=== PATIENT | male | born 1970 | race Two or more races ===

== ENCOUNTER 2022-11-06 11:43 | Outpatient (REF) | payer SELFPAY ==
[2022-11-06 13:15] LABS: Estimated Average Glucose 192 mg/dL; Hemoglobin A1c % 8.3 %
[2022-11-06 13:43] LABS: Anion Gap 13 (12-20); Blood Urea Nitrogen 19 mg/dL (9-16); Calcium 9.5 mg/dL (8.4-10.2); Carbon Dioxide 32 mmol/L (22-29); Chloride 101 mmol/L (96-108); Estimated Glomerular Filt Rate > 60; Glucose Random 163 mg/dL (60-115); Potassium 4.6 mmol/L (3.3-5.1); Sodium 141 mmol/L (135-145)
[2022-11-06 13:47] LABS: Erythrocyte Sedimentation Rate 7 MM/HR (0-15)
[2022-11-06 14:01] LABS: T4 Thyroxine 7.3 ug/dL (4.5-12.0); Thyroid Stimulating Hormone 3.35 uIU/mL (0.32-4.0)
== END 2022-11-06 11:44 | disposition home or self-care (01) ==
LOC: HO.LAB 11:43
PROVIDERS: Visit Provider Psychiatry & Neurology Neurology
DX: M54.16 Radiculopathy, lumbar region (principal); E11.9 Type 2 diabetes mellitus without complications; E03.9 Hypothyroidism, unspecified
CPT/HCPCS: 36415; 80048; 83036; 84436; 84443; 85652

== ENCOUNTER 2023-07-31 08:56 | Outpatient (REF) | payer OTHER, SELFPAY | END 2023-07-31 08:57 | disposition home or self-care (01) | LOC: HO.MRI 08:56 | PROVIDERS: Visit Provider Psychiatry & Neurology Neurology | DX: M54.16 Radiculopathy, lumbar region (principal) | CPT/HCPCS: 72148 ==

== ENCOUNTER 2024-08-02 18:36 | Inpatient (IN) | payer OTHER, SELFPAY ==
--- NOTE | ~2024-08-02 | US_ITS ---
CLINICAL HISTORY: RLE swelling Venous duplex ultrasound right lower extremity Comparison: None Findings: The visualized deep veins are fully compressible with normal Doppler color flow and spectral tracings. No popliteal cyst. There is a prominent 2.3 cm lymph node in the right inguinal region, with a normal fatty hilum. IMPRESSION: 1. Negative for right lower extremity deep vein thrombosis. 2. Prominent right inguinal lymph node. This document has been electronically signed by: Luis Alfredo Higgins MD on 08/02/2024 20:32:26
--- NOTE | ~2024-08-02 | XR_ITS ---
CLINICAL HISTORY: r o osteo 3 view right foot Comparison: None Findings: No lytic or blastic bone lesions. No destructive bone lesions. No significant loss of joint space, osteophytes, or erosions. No ankle effusion. No radiopaque foreign body. Diffuse soft tissue swelling around the forefoot. IMPRESSION: 1. No acute findings. 2. Diffuse forefoot soft tissue swelling. This document has been electronically signed by: Luis Alfredo Higgins MD on 08/02/2024 19:15:12
--- NOTE | ~2024-08-02 | CT_ITS ---
CLINICAL HISTORY: pain, infection, ? abscess, ? osteomyelitis CT right foot with contrast Comparison: CR - XR FOOT RT MIN 3V - 08/02/24 19:09 EST Findings: There is no evidence of osteomyelitis. There is subcutaneous edema greatest dorsally and laterally. There is a superficial focus of gas and minimal subdermal fluid between the 4th and 5th toes. There is otherwise no evidence of an abscess. There is no fracture or dislocation. Joint spaces appear normal. IMPRESSION: 1. Subcutaneous edema compatible with cellulitis. 2. No evidence of osteomyelitis. 3. Superficial focus of gas and minimal subdermal fluid between the 4th and 5th toes suggestive of blister or tiny superficial abscess. This document has been electronically signed by: López Williamson MD on 08/02/2024 23:19:33
--- NOTE | 2024-08-02 18:51 | ED_ITS ---
HPI - Extremity Injury (Lower) General Chief Complaint: Extremity Injury, Lower Stated Complaint: right foot swollen Time Seen by Provider: 08/02/24 21:26 Related Data Allergies Allergy/AdvReac Type Severity Reaction Status Date / Time No Known Allergies Allergy Verified 08/02/24 18:54 [facility] Past Medical History Medical History Peripheral neuropathy Non-insulin dependent type 2 diabetes mellitus Mixed hyperlipidemia Social History Social History Smoked in Last 30 Days: No Advance Directives: No Advance Directives Information Provided: No Do you have a plan to hurt others: No Plan Physical Exam 2 Vital Signs: Vital Signs: Last Vital Signs Temp 98.5 F 08/02/24 20:47 Pulse 74 08/02/24 20:47 Resp 16 08/02/24 20:47 BP 131/64 08/02/24 20:47 Pulse Ox 97 08/02/24 20:47 O2 Del Method Room Air 08/02/24 20:47 BMI result Body Mass Index 36.6 Course Course Course Narrative: This is a Rapid Medical Exam performed in triage by Erna Blanchard PA-C. Full HPI, ROS and PE to be performed by primary ED provider. 53-year-old male with a past medical history diabetes, HLD presenting to the ED sent from urgent care for worsening right foot infection s/p failed outpatient antibiotics. Reports right foot pain, swelling, erythema, and drainage x 3 days. Was initially evaluated 3 days ago at urgent Care prescribed nystatin cream and Bactrim without relief, was re-evaluate due today and sent to the ED. PE: + right foot with appreciable swelling, erythema, open wound between 4th and 5th toes. Blister. Drainage. Tender to palpation neurovascularly intact Plan: Labs, blood Cx, lactic, XR, US Medical Decision Making Lab Data 08/02/24 19:36 08/02/24 19:36 Labs: Lab Results 08/02/24 Range/Units 19:36 WBC 8.6 (4.8-10.8) X10*3/uL RBC 5.72 (4.60-5.80) X10*6/uL Hgb 16.4 (14.0-18.0) g/dl Hct 46.5 (42.0-52.0) % MCV 81.3 (80.0-98.0) fL MCH 28.7 (27.0-33.0) pg MCHC 35.3 (31.0-36.0) g/dl RDW 12.4 (11.0-16.0) % Plt Count 241 (160-400) X10*3/uL MPV 9.6 (9.4-12.4) fL Immature Gran % (Auto) 0.2 (0.0-0.4) % Neut % (Auto) 62.8 (45-73) % Lymph % (Auto) 25.4 (20-40) % [place] % (Auto) 7.1 (2-11) % Eos % (Auto) 3.6 (0-4) % Baso % (Auto) 0.9 (0-2) % Lymph # (Auto) 2.2 (1.2-4.9) X10*3/uL [place] # (Auto) 0.6 (0.1-1.2) X10*3/uL Eos # (Auto) 0.3 (0.0-0.4) X10*3/uL Baso # (Auto) 0.1 (0.0-0.2) X10*3/uL Abs Immat Gran (auto) 0.02 (0.00-0.03) X10*3/uL Absolute Neuts (auto) 5.4 (2.0-8.3) x10*3/uL Absolute Nucleated RBC 0.000 (0.0-0.012) X10*3/uL Nucleated RBC % (auto) 0.0 (0.0-0.2) /100WBC PT 11.9 (10.9-12.4) SEC INR 1.0 (0.9-1.1) Sodium 137 (135-145) mmol/L Potassium 4.1 (3.3-5.1) mmol/L Chloride 104 (96-108) mmol/L Carbon Dioxide 22 (22-29) mmol/L Anion Gap 15 (12-20) BUN 14 (9-16) mg/dL Creatinine 0.85 (0.5-1.4) mg/dL Estim Creat Clear Calc 106.6 Estimated GFR > 60 Random Glucose 163 H (60-115) mg/dL Lactic Acid 1.1 (0.5-2.0) mmol/L Calcium 9.5 (8.4-10.2) mg/dL Magnesium 2.2 (1.6-2.6) mg/dL Total Bilirubin 0.3 (0.0-1.0) mg/dL Direct Bilirubin 0.1 (0.0-0.5) mg/dL AST 19 (5-37) U/L ALT 27 (0-40) U/L Alkaline Phosphatase 69 (39-117) U/L B-Natriuretic Peptide < 10 (<100) pg/mL Total Protein 7.9 (6.5-8.0) g/dL Albumin 4.2 (3.5-5.0) g/dL Discharge Plan Discharge Clinical Impression: Cellulitis of right foot Patient Disposition: Admitted As Inpatient Print Language: Kiswahili
[2024-08-02 18:52] VITALS: BP 129/63; PULSE 79; RESP 16; TEMP 36.1; O2SAT 100; BMI 36.6
[2024-08-02 19:43] LABS: MANUAL DIFF FLAG NO
[2024-08-02 19:44] LABS: Basophils Absolute Auto 0.1 X10*3/uL (0.0-0.2); Basophils Percent Auto 0.9 % (0-2); Eosinophils Absolute Auto 0.3 X10*3/uL (0.0-0.4); Eosinophils Percent Auto 3.6 % (0-4); Hematocrit 46.5 % (42.0-52.0); Hemoglobin 16.4 g/dl (14.0-18.0); Imm Gran Abs Auto 0.02 X10*3/uL (0.00-0.03); Imm Gran Pct Auto 0.2 % (0.0-0.4); Lymphocytes Absolute Auto 2.2 X10*3/uL (1.2-4.9); Lymphocytes Percent Auto 25.4 % (20-40); Mean Corpuscular HGB Conc 35.3 g/dl (31.0-36.0); Mean Corpuscular Hemoglobin 28.7 pg (27.0-33.0); Mean Corpuscular Volume 81.3 fL (80.0-98.0); Mean Platelet Volume 9.6 fL (9.4-12.4); Monocytes Absolute Auto 0.6 X10*3/uL (0.1-1.2); Monocytes Percent Auto 7.1 % (2-11); Neutrophils Absolute Auto 5.4 x10*3/uL (2.0-8.3); Neutrophils Percent Auto 62.8 % (45-73); Platelet Count 241 X10*3/uL (160-400); Red Blood Count 5.72 X10*6/uL (4.60-5.80); Red Cell Distribution Width 12.4 % (11.0-16.0); White Blood Count 8.6 X10*3/uL (4.8-10.8)
[2024-08-02 19:51] LABS: Prothrombin Time 11.9 SEC (10.9-12.4)
[2024-08-02 20:09] LABS: Alanine Aminotransferase 27 U/L (0-40); Albumin Level 4.2 g/dL (3.5-5.0); Alkaline Phosphatase 69 U/L (39-117); Anion Gap 15 (12-20); Aspartate Amino Transferase 19 U/L (5-37); Bilirubin Direct 0.1 mg/dL (0.0-0.5); Bilirubin Total 0.3 mg/dL (0.0-1.0); Blood Urea Nitrogen 14 mg/dL (9-16); Calcium 9.5 mg/dL (8.4-10.2); Carbon Dioxide 22 mmol/L (22-29); Chloride 104 mmol/L (96-108); Creatinine Clr Calc Pharmacy 106.6; Estimated Glomerular Filt Rate > 60; Glucose Random 163 mg/dL (60-115); Magnesium 2.2 mg/dL (1.6-2.6); Potassium 4.1 mmol/L (3.3-5.1); Sodium 137 mmol/L (135-145); Total Protein 7.9 g/dL (6.5-8.0)
[2024-08-02 20:11] LABS: Lactic Acid 1.1 mmol/L (0.5-2.0)
[2024-08-02 20:15] LABS: B Type Natriuretic Peptide < 10 pg/mL (<100)
[2024-08-02 20:47] VITALS: BP 131/64; PULSE 74; RESP 16; TEMP 36.9; O2SAT 97
--- NOTE | 2024-08-02 21:31 | PC.NURSE ---
pt has a wound on rt foot, states the has been taking some antibiotics for two days now, last took tylenol and motrin in the morning. redness area on rt foot, marked and dated. iv inserted to left ac with a 22 gauge.
--- NOTE | 2024-08-02 21:44 | P.HPHOSP_ITS ---
History of Present Illness Date of Service: 08/02/24 Chief Complaint: Foot infection This is a 53-year-old male with pertinent history of non insulin diabetes mellitus, mixed hyperlipidemia, peripheral neuropathy who presents to the emergency department for concerns of foot infection. Patient states his symptoms began 4 days prior to presentation. Patient was prescribed antibiotics for right foot infection 4 days ago. He took 3 days of Bactrim but did not notice any improvement. He has been having purulent foul-smelling drainage between his 4th and 5th digit of his right foot and his right foot is swollen, red and warm. This has never happened before. Unknown precipitating event. Does not take insulin but is on metformin for diabetes mellitus. No fever, chills, chest pain, palpitations, shortness of breath, abdominal pain, changes in urinary or bowel habits. In the emergency department, x-ray with diffuse soft tissue swelling. Review of Systems 2 Constitutional: Constitutional: Reports no additional constitutional complaints Cardiovascular: Cardiovascular: Reports no additional cardiovascular complaints Respiratory: Respiratory: Reports no additional respiratory complaints Genitourinary: Genitourinary: Reports no additional male genitourinary complaints Musculoskeletal: Musculoskeletal: Reports no additional musculoskeletal complaints [facility] Medical History Peripheral neuropathy Non-insulin dependent type 2 diabetes mellitus Mixed hyperlipidemia Pertinent family history: No family history of early CAD Social History Smoked in Last 30 Days: No Advance Directives: No Advance Directives Information Provided: No Do you have a plan to hurt others: No Plan Meds Allergies Allergy/AdvReac Type Severity Reaction Status Date / Time No Known Allergies Allergy Verified 08/02/24 18:54 Physical Exam 2 Vital Signs and Narrative: Vital Signs: Last Vital Signs Temp 98.5 F 08/02/24 20:47 Pulse 74 08/02/24 20:47 Resp 16 08/02/24 20:47 BP 131/64 08/02/24 20:47 Pulse Ox 97 08/02/24 20:47 O2 Del Method Room Air 08/02/24 20:47 BMI result Body Mass Index 36.6 Middle-aged male lying in bed in no distress Neck supple, no JVD Regular rate and rhythm, S1-S2 heard Regular breath sounds bilaterally, no wheezing or crackles appreciated Abdomen soft nontender, no guarding, no rigidity Patient is awake, alert and oriented to self, place, time and person ; no focal motor deficit Psych: Normal mood Right foot with swelling, erythema, warmth, purulent drainage between digits, tenderness present Results Labs 08/02/24 19:36 08/02/24 19:36 Labs: Laboratory Results - last 24 hr 08/02/24 19:36 MCV 81.3 MCH 28.7 MCHC 35.3 RDW 12.4 Plt Count 241 MPV 9.6 Immature Gran % (Auto) 0.2 Neut % (Auto) 62.8 Lymph % (Auto) 25.4 [place] % (Auto) 7.1 Eos % (Auto) 3.6 Baso % (Auto) 0.9 Lymph # (Auto) 2.2 [place] # (Auto) 0.6 Eos # (Auto) 0.3 Baso # (Auto) 0.1 Abs Immat Gran (auto) 0.02 Absolute Neuts (auto) 5.4 Absolute Nucleated RBC 0.000 Nucleated RBC % (auto) 0.0 PT 11.9 INR 1.0 Anion Gap 15 Estim Creat Clear Calc 106.6 Estimated GFR > 60 Random Glucose 163 H Lactic Acid 1.1 Calcium 9.5 Magnesium 2.2 Total Bilirubin 0.3 Direct Bilirubin 0.1 AST 19 ALT 27 Alkaline Phosphatase 69 B-Natriuretic Peptide < 10 Total Protein 7.9 Albumin 4.2 Assessment and Plan (1) Cellulitis of right foot: Status: Acute Plan This is a 53-year-old male with pertinent history of non insulin diabetes mellitus, mixed hyperlipidemia, peripheral neuropathy who presents to the emergency department for concerns of foot infection. #. Right foot purulent cellulitis: Will admit patient for IV antibiotics as he failed outpatient p.o. antibiotics. CT pending. No sepsis. Monitor for improvement. Wound care consult #. Elp-wkqopto-bnjudyzhm diabetes mellitus: Initiating Accu-Cheks with sliding scale insulin before meals and at bedtime #. Mixed hyperlipidemia: On statin #. Peripheral neuropathy: On gabapentin Med rec pending DVT prophylaxis: Lovenox Full code Admit as inpatient and will require two night minimum hospital stay for IV antibiotics (as above), which is not possible in a lesser acute setting. Quality Stroke Does the patient have a stroke diagnosis?: No VTE Prior VTE?: No VTE Risk Level:: Medical - moderate - high VTE Device Contraindication: Treatment Not Indicated VTE Drug Contraindication: N/A - Med Ordered
--- NOTE | 2024-08-02 21:46 | ED.LOWEXIN ---
HPI - Extremity Injury (Lower) General Chief Complaint: Extremity Injury, Lower Stated Complaint: right foot swollen Time Seen by Provider: 08/02/24 21:26 History of Present Illness HPI Narrative: Patient is a 53-year-old male sent from the urgent care for increasing redness swelling to the right foot over last 3-4 days. No fever no chills no systemic complaints. Patient has a history of diabetes. His currently on metformin. Has increasing pain on ambulation. Came to the ED. noticed increasing swelling. Related Data Allergies Allergy/AdvReac Type Severity Reaction Status Date / Time No Known Allergies Allergy Verified 08/02/24 18:54 Review of Systems Review of Systems: No fever no chills. Yes all other systems are reviewed and are negative [facility] Past Medical History Attestation statement: The following information was validated with the patient. Medical History Peripheral neuropathy Non-insulin dependent type 2 diabetes mellitus Mixed hyperlipidemia Social History Social History Smoked in Last 30 Days: No Advance Directives: No Advance Directives Information Provided: No Do you have a plan to hurt others: No Plan Physical Exam Vital Signs: Vital Signs: Last Vital Signs Temp 98.5 F 08/02/24 20:47 Pulse 74 08/02/24 20:47 Resp 16 08/02/24 20:47 BP 131/64 08/02/24 20:47 Pulse Ox 97 08/02/24 20:47 O2 Del Method Room Air 08/02/24 20:47 BMI result Body Mass Index 36.6 Appearance: Alert. Oriented X3. No acute distress. Eyes: Pupils equal, round and reactive to light. ENT: Pharynx normal. Neck: Normal inspection. Neck supple. No lymph nodes noted. No crepitus CVS: Normal heart rate and rhythm. Pulses normal. Normal S1 and S2 Respiratory: No respiratory distress. Breath sounds normal. No Wheezing. No rales Abdomen: Soft and nontender. No rigidity. No distention. good BS x4 Skin: Skin warm and dry. Normal skin color. Normal skin turgor. Extremities: No lower extremity edema. Neurovascular intact to all extremities. Examination of the right foot shows area of weeping discharge coming between the 4th and 5th digit. There is surrounding area of tenderness to touch. Surrounded by area of redness. That are blanching. Positive swelling to the dorsum of the foot. Extending all the way up to the ankle. There is good movement of the ankle. Good movement of the knee. Good movement of the hip. Sensation grossly intact. Capillary refill less than 2 seconds. Neuro: Oriented X 3. No motor deficit. No sensory deficit. Moving all extermities. No slurred speech Medical Decision Making Medical Decision Making [facility] Narrative: Patient has significant infection with a history of diabetes. No evidence for sepsis. Patient's white count is normal lactate is normal. BNP is less than 10 there is no evidence for CHF. Patient's foot x-ray showed no acute fracture. No gross signs of osteomyelitis. Doppler of the right lower extremity was done. It showed no evidence for DVT. Patient's case consulted by the hospitalist team. Will start patient on antibiotics and admit given patient's diabetic Differential Diagnosis Differential Diagnoses: The differential diagnosis associated with the presentation includes Cellulitis, osteomyelitis, abscess Admission/Observation Consideration of admission/observation: Escalation of care including admission/observation considered Consult Healthcare Provider Management of the patient was discussed with: Hospitalist Lab Data [facility] Lab Attestation statement: I reviewed the patient's lab results. 08/02/24 19:36 08/02/24 19:36 Labs: Lab Results 08/02/24 Range/Units 19:36 WBC 8.6 (4.8-10.8) X10*3/uL RBC 5.72 (4.60-5.80) X10*6/uL Hgb 16.4 (14.0-18.0) g/dl Hct 46.5 (42.0-52.0) % MCV 81.3 (80.0-98.0) fL MCH 28.7 (27.0-33.0) pg MCHC 35.3 (31.0-36.0) g/dl RDW 12.4 (11.0-16.0) % Plt Count 241 (160-400) X10*3/uL MPV 9.6 (9.4-12.4) fL Immature Gran % (Auto) 0.2 (0.0-0.4) % Neut % (Auto) 62.8 (45-73) % Lymph % (Auto) 25.4 (20-40) % [place] % (Auto) 7.1 (2-11) % Eos % (Auto) 3.6 (0-4) % Baso % (Auto) 0.9 (0-2) % Lymph # (Auto) 2.2 (1.2-4.9) X10*3/uL [place] # (Auto) 0.6 (0.1-1.2) X10*3/uL Eos # (Auto) 0.3 (0.0-0.4) X10*3/uL Baso # (Auto) 0.1 (0.0-0.2) X10*3/uL Abs Immat Gran (auto) 0.02 (0.00-0.03) X10*3/uL Absolute Neuts (auto) 5.4 (2.0-8.3) x10*3/uL Absolute Nucleated RBC 0.000 (0.0-0.012) X10*3/uL Nucleated RBC % (auto) 0.0 (0.0-0.2) /100WBC PT 11.9 (10.9-12.4) SEC INR 1.0 (0.9-1.1) Sodium 137 (135-145) mmol/L Potassium 4.1 (3.3-5.1) mmol/L Chloride 104 (96-108) mmol/L Carbon Dioxide 22 (22-29) mmol/L Anion Gap 15 (12-20) BUN 14 (9-16) mg/dL Creatinine 0.85 (0.5-1.4) mg/dL Estim Creat Clear Calc 106.6 Estimated GFR > 60 Random Glucose 163 H (60-115) mg/dL Lactic Acid 1.1 (0.5-2.0) mmol/L Calcium 9.5 (8.4-10.2) mg/dL Magnesium 2.2 (1.6-2.6) mg/dL Total Bilirubin 0.3 (0.0-1.0) mg/dL Direct Bilirubin 0.1 (0.0-0.5) mg/dL AST 19 (5-37) U/L ALT 27 (0-40) U/L Alkaline Phosphatase 69 (39-117) U/L B-Natriuretic Peptide < 10 (<100) pg/mL Total Protein 7.9 (6.5-8.0) g/dL Albumin 4.2 (3.5-5.0) g/dL Independent Interpretation I performed an independent interpretation of an: Plain X-Ray (X-ray of the foot showed no acute fracture) Radiology Impression Discussion of test interpretation with radiology: I have reviewed the radiologist's reading. External Record Review External record reviewed: Inpatient record Chronic Conditions Patient?s care impacted by: Diabetes Social Determinants Patient?s care significantly limited by Social Determinants of Health including: Problems related to primary support group Discharge Plan Discharge Clinical Impression: Cellulitis of right foot Patient Disposition: Admitted As Inpatient Print Language: Kinyarwanda
[2024-08-02] MEDS: iohexoL 350 MG/ML 100 ML INFUS..BTL 85 ML IV (22:01)
[2024-08-02] MEDS: Enoxaparin Sodium 40 MG/0.4 ML SYRINGE SUBCUT (22:08)
[2024-08-02] MEDS: Lactated Ringers 1,000 ML 999 ML IV (22:14)
[2024-08-02] MEDS: vancomycin/NS 2,000 MG/500 ML PLAST..BAG 250 MG IV (22:15)
--- NOTE | 2024-08-02 22:34 | PHA.PROG ---
Admission Date/Time: August 02, 2024 21:42 Indication:SKIN Weight in k.79 kg Adjusted body weight in Kg: [place] body weight in Kg: Obesity Dosing Indication % IBW: Serum Creatinine - Last 168 Hours 08/02/24 19:36 Creatinine 0.85 Estimated CrCl and GFR - Last 168 Hours 08/02/24 19:36 Estim Creat Clear Calc 106.6 Estimated GFR > 60 Vancomycin Loading Dose: 2000 MG Current Vancomycin Dosing Regimen: 1250 MG Q12H Vancomycin Monitoring using AUC goal of 400 - 600 range with trough as surrogate marker: VYZ=295 TROUGH=15.4 Date and Time for next Vancomycin Level to be drawn: 08/04/24 @0800 Pharmacist Comments on Vancomycin Plan: Vancomycin dosing will take advantage of [employer] as a clinical decision support tool that uses Bayesian modeling to calculate individual patient's pharmacokinetic parameters and forecast the patient's drug concentration time course with the target goal AUC 24 range of 400 - 600 mg/L/hr.
[2024-08-03 02:26] VITALS: BP 113/64; PULSE 75; RESP 12; TEMP 36.6; O2SAT 95
--- NOTE | 2024-08-03 02:38 | PC.NURSE ---
Medication list completed to the best of pt knowledge and medical record.
[2024-08-03 03:47] LABS: MANUAL DIFF FLAG NO
[2024-08-03 03:51] LABS: Basophils Absolute Auto 0.1 X10*3/uL (0.0-0.2); Basophils Percent Auto 0.7 % (0-2); Eosinophils Absolute Auto 0.3 X10*3/uL (0.0-0.4); Eosinophils Percent Auto 4.3 % (0-4); Hematocrit 43.1 % (42.0-52.0); Hemoglobin 14.9 g/dl (14.0-18.0); Imm Gran Abs Auto 0.01 X10*3/uL (0.00-0.03); Imm Gran Pct Auto 0.1 % (0.0-0.4); Lymphocytes Absolute Auto 2.1 X10*3/uL (1.2-4.9); Lymphocytes Percent Auto 30.4 % (20-40); Mean Corpuscular HGB Conc 34.6 g/dl (31.0-36.0); Mean Corpuscular Hemoglobin 28.1 pg (27.0-33.0); Mean Corpuscular Volume 81.3 fL (80.0-98.0); Mean Platelet Volume 9.7 fL (9.4-12.4); Monocytes Absolute Auto 0.6 X10*3/uL (0.1-1.2); Monocytes Percent Auto 8.1 % (2-11); Neutrophils Absolute Auto 3.9 x10*3/uL (2.0-8.3); Neutrophils Percent Auto 56.4 % (45-73); Platelet Count 255 X10*3/uL (160-400); Red Cell Distribution Width 12.3 % (11.0-16.0)
[2024-08-03 04:03] LABS: Anion Gap 9 (12-20); Blood Urea Nitrogen 10 mg/dL (9-16); Calcium 8.8 mg/dL (8.4-10.2); Carbon Dioxide 25 mmol/L (22-29); Chloride 106 mmol/L (96-108); Creatinine Clr Calc Pharmacy 104.2; Estimated Glomerular Filt Rate > 60; Glucose Random 178 mg/dL (60-115); Sodium 136 mmol/L (135-145)
[2024-08-03 06:06] VITALS: BP 115/54; PULSE 64; RESP 16; TEMP 36.8; O2SAT 97
[2024-08-03] MEDS: 0.9 % Sodium Chloride Flush 3 ML SYRINGE IVFLUSH ×3 (06:49→21:07)
--- NOTE | 2024-08-03 07:33 | P.PNIM_ITS ---
Subjective Subjective Date of Service: 08/03/24 Interval History: Being followed for right foot cellulitis failed outpatient antibiotics Complaining of pain right foot, denies fever, no chills, tolerating diet Noncompliant with oral hypoglycemics Review of Systems All other system reviewed and are negative Physical Exam 2 Vital Signs: Vital Signs: Last Vital Signs Temp 98.3 F 08/03/24 06:06 Pulse 64 08/03/24 06:06 Resp 16 08/03/24 06:06 BP 115/54 L 08/03/24 06:06 Pulse Ox 97 08/03/24 06:06 O2 Del Method Room Air 08/03/24 06:06 BMI result Body Mass Index 36.6 Const: Other: General lying in bed in no distress Neck no JVD Regular rate and rhythm, S1-S2 heard Lungs clear to auscultation no respiratory distress. Abdomen soft nontender, no guarding, no rigidity Right foot with swelling, erythema, warmth, purulent drainage between digits, tenderness to palpation. Neuro nonfocal normal sensation dorsum of feet Psych appropriate affect Objective Data Active Medications Acetaminophen (Acetaminophen 325 Mg Tablet) 650 mg PO Q6H PRN PRN Reason: Pain, Mild 1-3,fever,headache Calcium Carbonate (Calcium Carbonate 750 Mg Tab.Chew) 750 mg PO Q4H PRN PRN Reason: Heartburn Enoxaparin Sodium (Enoxaparin Sodium 40 Mg/0.4 Ml Syringe) 40 mg SUBCUT Q24H COUNT INCLUDES THE [facility] Last Admin: 08/02/24 22:08 Dose: 40 mg Documented By: MELANY Glucose (Glucose Gel 15 Gm Gel..Gram.) 15 gm PO Q15M PRN; Protocol PRN Reason: per Hypoglycemia Standing Ord. Dextrose (D10) 250 mls @ 750 mls/hr IV Q15M PRN; Protocol PRN Reason: per Hypoglycemia Standing Ord. Vancomycin HCl 1,250 mg/ (Sodium Chloride) 250 mls @ 166.667 mls/hr IV Q12H COUNT INCLUDES THE [facility] Insulin Human Lispro (Insulin Lispro 100 Unit/Ml 3 Ml Vial) 0 unit SUBCUT QIDACHS COUNT INCLUDES THE [facility]; Protocol Magnesium Hydroxide (Milk Of Magnesia 30 Ml Oral.Susp) 30 ml PO DAILY PRN PRN Reason: Constipation Melatonin (Melatonin 3 Mg Tablet) 6 mg PO BEDTIME PRN PRN Reason: Insomnia Ondansetron HCl (Ondansetron Hcl 4 Mg/2 Ml Vial) 4 mg IVPUSH Q8H PRN PRN Reason: Nausea and Vomiting Pharmacy Consult (Consult Rx Vancomycin Dosing) 1 each MISCELLANE DAILY PRN PRN Reason: Consult order Sodium Chloride (0.9 % Sodium Chloride Flush 3 Ml Syringe) 3 ml IVFLUSH QSHIFT COUNT INCLUDES THE [facility] Last Admin: 08/03/24 06:49 Dose: 3 ml Documented By: TRISHA Labs 08/03/24 03:34 08/03/24 03:34 Labs: Laboratory Results - last 24 hr 08/02/24 08/03/24 19:36 03:34 MCV 81.3 81.3 MCH 28.7 28.1 MCHC 35.3 34.6 RDW 12.4 12.3 Plt Count 241 255 MPV 9.6 9.7 Immature Gran % (Auto) 0.2 0.1 Neut % (Auto) 62.8 56.4 Lymph % (Auto) 25.4 30.4 [place] % (Auto) 7.1 8.1 Eos % (Auto) 3.6 4.3 H Baso % (Auto) 0.9 0.7 Lymph # (Auto) 2.2 2.1 [place] # (Auto) 0.6 0.6 Eos # (Auto) 0.3 0.3 Baso # (Auto) 0.1 0.1 Abs Immat Gran (auto) 0.02 0.01 Absolute Neuts (auto) 5.4 3.9 Absolute Nucleated RBC 0.000 0.000 Nucleated RBC % (auto) 0.0 0.0 PT 11.9 INR 1.0 Anion Gap 15 9 L Estim Creat Clear Calc 106.6 104.2 Estimated GFR > 60 > 60 Random Glucose 163 H 178 H Lactic Acid 1.1 Calcium 9.5 8.8 D Magnesium 2.2 Total Bilirubin 0.3 Direct Bilirubin 0.1 AST 19 ALT 27 Alkaline Phosphatase 69 B-Natriuretic Peptide < 10 Total Protein 7.9 Albumin 4.2 Assessment and Plan (1) Peripheral neuropathy: Status: Acute (2) Mixed hyperlipidemia: Status: Acute (3) Non-insulin dependent type 2 diabetes mellitus: Status: Acute (4) Cellulitis of right foot: Status: Acute Plan 53-year-old male with pertinent history of non insulin diabetes mellitus, mixed hyperlipidemia, peripheral neuropathy who presents to the emergency department for concerns of foot infection. #. Right foot purulent cellulitis: Continue IV vancomycin started on 08/03, failed outpatient p.o. antibiotics. persistent redness, warmth, tenderness to palpation and minimal serosanguineous discharge between 4th and 5th digits CT foot showed no osteomyelitis, superficial focus of gas and minimal subdermal fluid between the 4th and 5th dose suggestive of blister or tiny superficial abscess No sepsis. Follow blood cultures x2 apply heat/ Monitor for improvement Surgical consult if no improvement for possible I and D. #. Gyc-priurhv-nfdgfwagm diabetes mellitus: Noncompliant with Glucophage has not use insulin in the past Glucophage on hold, Continue Accu-Cheks with sliding scale insulin before meals and at bedtime Check hemoglobin A1c Nutrition consult #. Mixed hyperlipidemia: On statin #. Peripheral neuropathy: On gabapentin # class 2 obesity recommend low-calorie diet DVT prophylaxis: Lovenox Full code will require continued inpatient hospital stay for IV antibiotics (as above), which is not possible in a lesser acute setting. Quality Stroke Does the patient have a stroke diagnosis?: No VTE Prior VTE?: No VTE Risk Level:: Medical - moderate - high VTE Device Contraindication: Treatment Not Indicated VTE Drug Contraindication: N/A - Med Ordered
[2024-08-03 07:49] LABS: Glucose, Whole Blood 191 mg/dL (60-115)
[2024-08-03 08:10] VITALS: BP 127/64; PULSE 78; RESP 20; TEMP 36.8; O2SAT 95
--- NOTE | 2024-08-03 08:49 | PHA.MEDREC ---
Addendum entered by Ap Lorenz RPh 08/03/24 09:30: MED REC CHECKED BY [facility] Original Note: Pharmacy Consult ? Medication Reconciliation Pharmacy has completed the medication reconciliation. Spoke with patient to confirm medications. He last took bactrim yesterday morning. He uses nystatin once daily instead of TID. He is noncompliant with his metformin, only takes one tablet in the evening when he does take it. He takes cyclobenzaprine and gabapentin at bedtime as needed, both 1 tab/cap.
--- NOTE | 2024-08-03 08:55 | PC.NURSE ---
patient is awake, alert and oriented. patient refused insulin this morning 2 units. VSS. skin dry and intact
[2024-08-03] MEDS: vancomycin HCL 1,250 MG in 0.9 % Sodium Chloride 250 ML 166.67 MG IV ×2 (10:00→21:07)
--- NOTE | 2024-08-03 10:33 | PC.NURSE ---
warm compress applied to patients right foot wound per MD order
--- NOTE | 2024-08-03 11:17 | HE.PHANOTE ---
vanco dose adjustment based on scr dose continued at 1250 q 12h. next trough 08/04 @ 0800
[2024-08-03 11:41] VITALS: RESP 16
[2024-08-03 11:58] LABS: Glucose, Whole Blood 265 mg/dL (60-115)
--- NOTE | 2024-08-03 12:44 | MHC.CM.PN ---
PT REPORTS HE LIVES WITH HIS AND KIDS HE IS USUALLY INDEPENDENT WITH CARE, BUT HAS BEEN HELPING PRN SINCE FOOT INFECTION PAIN HAS BEEN LIMITING FUNCTION PT IS USING A CANE FOR DME, BUT USES NOTHING AT BASELINE HE DECLINES TO COMPLETE A HCP PCP: MARY SALINAS IMM DELIVERED DCP: [facility] WITH SERVICES TO TRANSPORT
[2024-08-03] MEDS: Insulin Lispro 100 UNIT/ML 3 ML VIAL SUBCUT ×2 (13:26→16:24)
[2024-08-03] MEDS: glipiZIDE XL 5 MG TAB.ER.24 PO (14:00)
[2024-08-03 15:21] VITALS: BP 143/65; PULSE 74; RESP 20; TEMP 36.2; O2SAT 96
[2024-08-03 15:34] VITALS: BMI 36.7
[2024-08-03 16:10] LABS: Glucose, Whole Blood 167 mg/dL (60-115)
[2024-08-03 19:08] VITALS: BP 113/57; PULSE 77; RESP 20; TEMP 36.3; O2SAT 96
[2024-08-03 20:10] LABS: Glucose, Whole Blood 85 mg/dL (60-115)
[2024-08-03] MEDS: Acetaminophen 325 MG TABLET 650 MG PO (21:10)
[2024-08-04 04:00] VITALS: BP 116/60; PULSE 75; RESP 20; TEMP 36.2; O2SAT 96
[2024-08-04 07:24] VITALS: BP 133/74; PULSE 73; RESP 18; TEMP 36.1; O2SAT 96
[2024-08-04 07:33] LABS: Glucose, Whole Blood 175 mg/dL (60-115)
[2024-08-04] MEDS: glipiZIDE XL 5 MG TAB.ER.24 PO (07:52)
[2024-08-04] MEDS: Insulin Lispro 100 UNIT/ML 3 ML VIAL SUBCUT ×3 (07:53→20:53)
[2024-08-04] MEDS: 0.9 % Sodium Chloride Flush 3 ML SYRINGE IVFLUSH ×3 (07:53→20:55)
[2024-08-04] MEDS: Atorvastatin Calcium 40 MG TABLET PO (07:53)
[2024-08-04 09:05] LABS: Estimated Average Glucose 226 mg/dL; Hemoglobin A1c % 9.5 % (<6.0); Total Hemoglobin (HGBA1C) 3831.7436 umol/L
[2024-08-04 09:16] LABS: Creatinine Clr Calc Pharmacy 92.6; Estimated Glomerular Filt Rate > 60
[2024-08-04 09:18] LABS: Vancomycin Random 8.3 mcg/mL (15-20)
--- NOTE | 2024-08-04 09:35 | HE.PHANOTE ---
Re Vanc Trough was 8.3 mg/L, will increase to 1000mg q8h for a projected AUC of 445 mg/L and trough of 12.7 mg/L which should be therapeutic for a skin infeciton.
[2024-08-04] MEDS: vancomycin HCL 1,000 MG in 0.9 % Sodium Chloride 250 ML 270 MG IV ×2 (09:48→17:19)
[2024-08-04 11:13] LABS: Glucose, Whole Blood 249 mg/dL (60-115)
--- NOTE | 2024-08-04 11:44 | P.PNIM_ITS ---
Subjective Subjective Date of Service: 08/04/24 Interval History: No acute issues overnight. States pain and pressure have improved Review of Systems Denies chest pain Denies shortness of breath Denies nausea vomiting diarrhea Denies fever chills Physical Exam 2 Vital Signs: Vital Signs: Last Vital Signs Temp 97.0 F 08/04/24 07:24 Pulse 73 08/04/24 07:24 Resp 18 08/04/24 07:24 BP 133/74 08/04/24 07:24 Pulse Ox 96 08/04/24 07:24 O2 Del Method Room Air 08/04/24 07:24 BMI result Body Mass Index 36.7 Const: Other: Awake alert no acute distress Resp: Other: Clear to auscultation bilaterally no rales rhonchi or wheezes Cardio: Other: No S4; positive S1-S2; no S3 murmurs rubs or gallops GI: Other: Soft nontender nondistended normoactive bowel sounds Extrem: Other: See nurse's note for photo documentation of right foot wound Objective Data Active Medications Acetaminophen (Acetaminophen 325 Mg Tablet) 650 mg PO Q6H PRN PRN Reason: Pain, Mild 1-3,fever,headache Last Admin: 08/03/24 21:10 Dose: 650 mg Documented By: CARLOS ALBERTO Atorvastatin Calcium (Atorvastatin Calcium 40 Mg Tablet) 40 mg PO DAILY [facility] Last Admin: 08/04/24 07:53 Dose: 40 mg Documented By: TIANNA Calcium Carbonate (Calcium Carbonate 750 Mg Tab.Chew) 750 mg PO Q4H PRN PRN Reason: Heartburn Cyclobenzaprine HCl (Cyclobenzaprine Hcl 10 Mg Tablet) 10 mg PO BEDTIME PRN PRN Reason: Muscle Spasm Enoxaparin Sodium (Enoxaparin Sodium 40 Mg/0.4 Ml Syringe) 40 mg SUBCUT Q24H [facility] Last Admin: 08/03/24 21:07 Dose: Not Given Documented By: CARLOS ALBERTO Non-Admin Reason: Patient Refused Glipizide (Glipizide Xl 5 Mg Tab.Er.24) 5 mg PO DAILY [facility] Last Admin: 08/04/24 07:52 Dose: 5 mg Documented By: TIANNA Glucose (Glucose Gel 15 Gm Gel..Gram.) 15 gm PO Q15M PRN; Protocol PRN Reason: per Hypoglycemia Standing Ord. Dextrose (D10) 250 mls @ 750 mls/hr IV Q15M PRN; Protocol PRN Reason: per Hypoglycemia Standing Ord. Vancomycin HCl 1,000 mg/ (Sodium Chloride) 270 mls @ 270 mls/hr IV Q8H [facility] Last Infusion: 08/04/24 10:58 Dose: Infused Documented By: TIANNA Insulin Human Lispro (Insulin Lispro 100 Unit/Ml 3 Ml Vial) 0 unit SUBCUT QIDACHS [facility]; Protocol Last Admin: 08/04/24 07:53 Dose: 4 unit Documented By: TIANNA Magnesium Hydroxide (Milk Of Magnesia 30 Ml Oral.Susp) 30 ml PO DAILY PRN PRN Reason: Constipation Melatonin (Melatonin 3 Mg Tablet) 6 mg PO BEDTIME PRN PRN Reason: Insomnia Ondansetron HCl (Ondansetron Hcl 4 Mg/2 Ml Vial) 4 mg IVPUSH Q8H PRN PRN Reason: Nausea and Vomiting Oxycodone HCl (Oxycodone Hcl Immed Release 5 Mg Tablet) 5 mg PO Q6H PRN PRN Reason: Pain, Moderate(Pain Scale 4-6) Pharmacy Consult (Consult Rx Vancomycin Dosing) 1 each MISCELLANE DAILY PRN PRN Reason: Consult order Sodium Chloride (0.9 % Sodium Chloride Flush 3 Ml Syringe) 3 ml IVFLUSH QSHIFT [facility] Last Admin: 08/04/24 07:53 Dose: 3 ml Documented By: TIANNA Labs 08/03/24 03:34 08/04/24 08:11 Labs: Laboratory Results - last 24 hr 08/03/24 08/03/24 08/03/24 11:50 16:06 20:07 Estim Creat Clear Calc Estimated GFR POC Glucose 265 H 167 H 85 Estimat Average Glucose Hemoglobin A1c % Random Vancomycin 08/04/24 08/04/24 08/04/24 07:29 08:11 11:04 Estim Creat Clear Calc 92.6 Estimated GFR > 60 POC Glucose 175 H 249 H Estimat Average Glucose 226 Hemoglobin A1c % 9.5 H Random Vancomycin 8.3 L Microbiology Microbiology Results: Microbiology 08/02/24 19:52 Blood Culture - Preliminary Blood - Venous No growth after 24 hours. 08/02/24 19:36 Blood Culture - Preliminary Blood - Venous No growth after 24 hours. Assessment and Plan (1) Cellulitis of right foot: Status: Acute (2) Non-insulin dependent type 2 diabetes mellitus: Status: Acute Plan 53-year-old male with pertinent history of non insulin diabetes mellitus, mixed hyperlipidemia, peripheral neuropathy who presents to the emergency department for concerns of foot infection. 1.Right foot purulent cellulitis -Vanco(2) -cultures negative times 24 hours -adjust therapies based on culture -no osteo on imaging 2. Type 2 diabetes without chronic insulin use -adjust therapies given poorly controlled sugars -continue glipizide... Add Jardiance 10 mg -low-dose MARKIE inhibitor/continue statin -lispro correctional scale -add back metformin if control does not improve Lovenox Full code Will require ongoing hospitalization for IV antibiotics to treat diabetic foot infection that has failed outpatient therapies Quality Stroke Does the patient have a stroke diagnosis?: No VTE Prior VTE?: No VTE Risk Level:: Medical - moderate - high VTE Device Contraindication: Treatment Not Indicated VTE Drug Contraindication: N/A - Med Ordered
--- NOTE | 2024-08-04 12:10 | MHC.CLN ---
NUTRITION CONSULT FOR DM EDUCATION. PROVIDED PATIENT WITH BOOKLET ABOUT HEALTHFUL MEAL PLANNING. PATIENT REQUESTED AND MAY BENEFIT FROM REFERRAL TO OUTPATIENT DIETITIAN.
[2024-08-04 12:19] VITALS: BP 112/69; PULSE 86
[2024-08-04] MEDS: Empagliflozin 10 MG TABLET PO (12:21)
--- NOTE | 2024-08-04 12:53 | HO.SKINPHOTO ---
Right foot between 4th and 5th toe. Per surgical specialist, area cleansed with NaCl, pat dried, painted with betadine, covered with durafiber, and wrapped with gauze. Pt tolerated well.
--- NOTE | 2024-08-04 15:17 | MHC.CM.PN ---
per rounds pt expected to dc [place] dc plan remains home
--- NOTE | 2024-08-04 15:24 | HO.WOUND ---
Wound Consult: Initial 53yr old? male admitted to [facility] [place] on 08/02/24- See progress notes and H&P for detailed history.? Wound consult placed for Right Foot 4th and 5th web space wound.? Dressing recently changed by direct care nurse after patient showered. Will attempt to assess in person tomorrow 08/05/24. Photos reviewed and topical recommendations made after photo review and chart review. Right 4th and 5th web space Right Foot 4th and 5th plantar Etiology: ??Diabetic Wound Wound Bed: Macerated tissue and epidermal lifting noted - visible pink moist wound bed Edges: ? irregular Magaly wound: Mild erythema noted - epidermal lifting appears to be effluent filled -? No Induration, Fluctuance or Warmth noted Goals of Treatment: ? Durafiber AG for moisture management Recommendations: 1. When applicable maintain blood glucose levels per Providers order. 2. Right Foot 4th and 5th web space - Cleanse and irrigate with NS, pat dry. Apply skin prep to periwound allow to dry. Weave Durafiber Ag into webspace, cover with dry gauze, ABD pad and wrap. Change every other day. Elevate lower leg throughout the day on pillows. Re-consult wound care Nurse for wound deterioration or wound changes.
[2024-08-04 15:25] VITALS: BP 143/66; PULSE 91; RESP 18; TEMP 36; O2SAT 98
[2024-08-04 16:17] LABS: Glucose, Whole Blood 124 mg/dL (60-115)
[2024-08-04 19:33] LABS: Glucose, Whole Blood 198 mg/dL (60-115)
[2024-08-04 19:38] VITALS: BP 132/93; PULSE 76; RESP 20; TEMP 36.8; O2SAT 98
[2024-08-04] MEDS: traMADoL HCL 50 MG TABLET PO (21:10)
[2024-08-04] MEDS: Docusate Sodium 100 MG CAPSULE 200 MG PO (21:56)
[2024-08-05] MEDS: vancomycin HCL 1,000 MG in 0.9 % Sodium Chloride 250 ML 270 MG IV (01:38)
--- NOTE | 2024-08-05 02:43 | PC.NURSE ---
Pt seen in room at shift change alert and oriented, ambulating independently with his own cane, c/o 05/08 shooting pain on the right leg, pt claimed he has h/o Chest pain with Oxycodone and prefers Tramadol instead, Dr. Mclaughlin was updated, Tramadol tab given with good effect, later pt c/o constipation, had last BM 3 days ago and had small BM today, Dr. Mclaughlin was again notified, Colace 2 caps given, awaiting for effect.
[2024-08-05 04:00] VITALS: BP 128/62; PULSE 80; RESP 20; TEMP 36.3; O2SAT 97
[2024-08-05 07:42] VITALS: BP 122/60; PULSE 66; RESP 18; TEMP 36.1; O2SAT 95
[2024-08-05 07:50] LABS: Glucose, Whole Blood 164 mg/dL (60-115)
[2024-08-05] MEDS: glipiZIDE XL 5 MG TAB.ER.24 PO (07:52)
[2024-08-05] MEDS: Atorvastatin Calcium 40 MG TABLET PO (07:52)
[2024-08-05] MEDS: Empagliflozin 10 MG TABLET PO (07:53)
[2024-08-05] MEDS: lisinopriL 2.5 MG TABLET PO (07:53)
[2024-08-05] MEDS: Milk of Magnesia 30 ML ORAL.SUSP PO (07:53)
[2024-08-05] MEDS: Insulin Lispro 100 UNIT/ML 3 ML VIAL SUBCUT (07:53)
[2024-08-05] MEDS: 0.9 % Sodium Chloride Flush 3 ML SYRINGE IVFLUSH (09:14)
[2024-08-05 09:45] LABS: Vancomycin Random 11.8 mcg/mL (15-20)
[2024-08-05 10:49] LABS: MANUAL DIFF FLAG NO
[2024-08-05 10:51] LABS: Basophils Absolute Auto 0.1 X10*3/uL (0.0-0.2); Basophils Percent Auto 0.7 % (0-2); Eosinophils Absolute Auto 0.3 X10*3/uL (0.0-0.4); Eosinophils Percent Auto 3.7 % (0-4); Hematocrit 44.3 % (42.0-52.0); Hemoglobin 15.8 g/dl (14.0-18.0); Imm Gran Abs Auto 0.02 X10*3/uL (0.00-0.03); Imm Gran Pct Auto 0.3 % (0.0-0.4); Lymphocytes Absolute Auto 1.9 X10*3/uL (1.2-4.9); Lymphocytes Percent Auto 26.5 % (20-40); Mean Corpuscular HGB Conc 35.7 g/dl (31.0-36.0); Mean Corpuscular Hemoglobin 28.7 pg (27.0-33.0); Mean Corpuscular Volume 80.4 fL (80.0-98.0); Mean Platelet Volume 9.4 fL (9.4-12.4); Monocytes Absolute Auto 0.5 X10*3/uL (0.1-1.2); Neutrophils Absolute Auto 4.4 x10*3/uL (2.0-8.3); Neutrophils Percent Auto 61.8 % (45-73); Platelet Count 280 X10*3/uL (160-400); Red Blood Count 5.51 X10*6/uL (4.60-5.80); Red Cell Distribution Width 12.1 % (11.0-16.0)
[2024-08-05 11:07] LABS: Creatinine Clr Calc Pharmacy 105.5; Estimated Glomerular Filt Rate > 60
[2024-08-05 11:10] LABS: Glucose, Whole Blood 116 mg/dL (60-115)
--- NOTE | 2024-08-05 13:17 | P.DS_ITS ---
DS: Providers Provider Date of Service: 08/05/24 Date of admission: 08/02/24 21:42 Date of discharge: 08/05/24 Primary care physician: Unknown Physician Consults: 08/03/24 12:27 Consult to Wound Care Routine Reason for consultation: rt foot 4/5 digit wound Has provider been notified: No DS: Diagnosis Discharge Diagnosis (1) Cellulitis of right foot: Status: Acute (2) Non-insulin dependent type 2 diabetes mellitus: Status: Acute DS: Summary Hospital Course Hospital Course: 53-year-old male with pertinent history of non insulin diabetes mellitus, mixed hyperlipidemia, peripheral neuropathy who presents to the emergency department for concerns of foot infection. Patient states his symptoms began 4 days prior to presentation. Patient was prescribed antibiotics for right foot infection 4 days ago. He took 3 days of Bactrim but did not notice any improvement. He has been having purulent foul-smelling drainage between his 4th and 5th digit of his right foot and his right foot is swollen, red and warm. This has never happened before. Unknown precipitating event. Does not take insulin but is on metformin for diabetes mellitus. No fever, chills, chest pain, palpitations, shortness of breath, abdominal pain, changes in urinary or bowel habits. Hospital Course Patient admitted to [facility] and started her IV vancomycin. Over the course of the next several day pain and erythema have decreased. White count is flat and blood cultures have remained negative. He will be discharged on Augmentin and doxycycline and follow up with wound care. Will ask [facility] to see for dressing changes until follow up with PCP Time Attestation Discharge Coordination Time (in mins): 35 Quality: Safe Use of Opioids Does Pt have an Active Cancer Diagnosis on the Problem List?: No Quality: Stroke Does the patient have a stroke diagnosis?: No Physical Exam Vital Signs: Vital Signs: Last Vital Signs Temp 96.9 F 08/05/24 07:42 Pulse 66 08/05/24 07:42 Resp 18 08/05/24 07:42 BP 122/60 08/05/24 07:42 Pulse Ox 95 08/05/24 07:42 O2 Del Method Room Air 08/05/24 07:42 BMI result Body Mass Index 36.7 Const: Other: Awake alert no acute distress Resp: Other: Clear to auscultation bilaterally no rales rhonchi or wheezes Cardio: Other: No S4; positive S1-S2; no S3 murmurs rubs or gallops GI: Other: Soft nontender nondistended normoactive bowel sounds Extrem: Other: See nurse's note for photo documentation of right foot wound DS: Data Data Completed and Pending Labs on day of discharge: Laboratory Results - last 24 hr 08/04/24 08/04/24 08/05/24 16:13 19:21 07:45 WBC RBC Hgb Hct MCV MCH MCHC RDW Plt Count MPV Immature Gran % (Auto) Neut % (Auto) Lymph % (Auto) [place] % (Auto) Eos % (Auto) Baso % (Auto) Lymph # (Auto) [place] # (Auto) Eos # (Auto) Baso # (Auto) Abs Immat Gran (auto) Absolute Neuts (auto) Absolute Nucleated RBC Nucleated RBC % (auto) Creatinine Estim Creat Clear Calc Estimated GFR POC Glucose 124 H 198 H 164 H Random Vancomycin 08/05/24 08/05/24 08/05/24 09:26 10:44 11:06 WBC 7.0 RBC 5.51 Hgb 15.8 Hct 44.3 MCV 80.4 MCH 28.7 MCHC 35.7 RDW 12.1 Plt Count 280 MPV 9.4 Immature Gran % (Auto) 0.3 Neut % (Auto) 61.8 Lymph % (Auto) 26.5 [place] % (Auto) 7.0 Eos % (Auto) 3.7 Baso % (Auto) 0.7 Lymph # (Auto) 1.9 [place] # (Auto) 0.5 Eos # (Auto) 0.3 Baso # (Auto) 0.1 Abs Immat Gran (auto) 0.02 Absolute Neuts (auto) 4.4 Absolute Nucleated RBC 0.000 Nucleated RBC % (auto) 0.0 Creatinine 0.86 Estim Creat Clear Calc 105.5 Estimated GFR > 60 POC Glucose 116 H Random Vancomycin 11.8 L Preliminary micro results at discharge 08/02/24 19:52 Blood Culture - Preliminary Blood - Venous No growth after 48 hours. 08/02/24 19:36 Blood Culture - Preliminary Blood - Venous No growth after 48 hours. Discharge Plan Discharge Anticipated Discharge Date/Time: 08/05/24 13:10 Patient Disposition: Home Health Service Discharge Diagnosis: Cellulitis right foot Referrals: Physician,Unknown J [Primary Care Provider] - 1 Week Discharge Medications: New glipizide 5 mg Tablet Extended Release 24hr 5 mg PO DAILY Qty: 30 0RF lisinopril 2.5 mg Tablet 2.5 mg PO DAILY Qty: 30 0RF Protocol: Hold for SBP< HOLD for SBP < : 90 Jardiance 10 mg Tablet 10 mg PO DAILY Qty: 30 0RF doxycycline hyclate 100 mg tablet 100 mg PO BID Qty: 14 0RF amoxicillin-pot clavulanate 875-125 mg tablet 1 tab PO BID Qty: 14 0RF Continued cyclobenzaprine 10 mg tablet 10 mg PO BEDTIME PRN (Reason: Muscle Spasm) atorvastatin 40 mg tablet 40 mg PO DAILY tramadol 50 mg tablet 50 mg PO Q12H PRN (Reason: Pain, Severe) gabapentin 300 mg capsule 300 mg PO BEDTIME PRN (Reason: Pain) nystatin 100,000 unit/gram powder 1 appl topical DAILY ibuprofen 600 mg tablet 600 mg PO TID PRN (Reason: Pain) Discontinued sulfamethoxazole-trimethoprim 800-160 mg tablet 1 tab PO Q12H acetaminophen 650 mg tablet extended release 1,300 mg PO Q8H PRN (Reason: Pain) metformin 500 mg tablet extended release 24 hr 500 mg PO QPM Discharge Orders: Discharge Order (Routine); Ordered 08/05/24 Ordered By: Leon Mccormick Diet: Advance to usual diet Activity on Discharge: As tolerated Stand Alone Forms: Patient Portal Discharge page Print Language: Occitan Care Plan Goals: Doxycycline 100 mg twice daily x7 days has been added to your regimen along with Augmentin 875 twice daily for 7 days. Health Concerns: Medication has been added to your diabetic regimen; metformin has been DC for now and Jardiance has been added along with glipizide. Hold metformin until seen by your primary care Plan of Treatment: [facility] will visit you for wound care and you need to follow up with the outpatient wound clinic Assessment: See discharge summary
--- NOTE | 2024-08-05 13:23 | P.F2F_ITS ---
Service Date Service Date: 08/05/24 Encounter Date of encounter: 08/05/24 Encounter: Acute hospitalization. Reasons for Services Signs and symptoms assessed: Wound care and glycemic control Reason for care home: wound care, diabetic teaching and medication management Homebound: Leaving the home is medically contraindicated at this time without the asist of a device and/or another person due th the listed conditions above and below. Reason homebound: unsteady gait / fall risk and unable to drive Certification: Based on the above findings, I certify that this patient is confined to the home and needs intermittent care home care, physical therapy and/or speech therapy, or continues to need occupational therapy. The patient is under my care, and I have initiated the establishment of the plan of care. The patient will be followed by a physician who will periodically review the plan of care. Time Spent With Patient Time: Total time managing care of this patient today ____ minutes.
--- NOTE | 2024-08-05 13:48 | MHC.CM.PN ---
pt dcd home with vna referal to get
--- NOTE | 2024-08-05 15:47 | HO.WOUND ---
Wound Consult: Follow up 53yr old? male admitted to [facility] on 08/02/24- See progress notes and H&P for detailed history.? Wound consult follow up for Right Foot 4th and 5th web space wound.? Dressing recently changed by direct care nurse after patient showered. Patient set for d/c. Met with patient and discussed topical recommendations and instruction. He reports understanding of steps and directions. Supplies given to patient prior to d/c. Discussed off loading pressure with limited standing and walking while wound is present and lower leg elevation and keeping foot dry and clean at time of return to work. Previous chart details: Photos reviewed and topical recommendations made after photo review and chart review. Right 4th and 5th web space Right Foot 4th and 5th plantar Etiology: ??Diabetic Wound Wound Bed: Macerated tissue and epidermal lifting noted - visible pink moist wound bed Edges: ? irregular Amgaly wound: Mild erythema noted - epidermal lifting appears to be effluent filled -? No Induration, Fluctuance or Warmth noted Goals of Treatment: ? Durafiber AG for moisture management Recommendations: 1. When applicable maintain blood glucose levels per Providers order. 2. Right Foot 4th and 5th web space - Cleanse and irrigate with NS, pat dry. Apply skin prep to periwound allow to dry. Weave Durafiber Ag into webspace, cover with dry gauze, ABD pad and wrap. Change every other day. Elevate lower leg throughout the day on pillows. Re-consult wound care Nurse for wound deterioration or wound changes.
== END 2024-08-05 15:32 | disposition home health service (06) | DRG 603 ==
LOC: HO.ED 21:50 → HO.EDOVER 21:53 → HO.S3 08-03 14:18
PROVIDERS: Hospitalist; Physician Assistant; Admitting Provider Student in an Organized Health Care Education/Training Program; Emergency Provider Emergency Medicine Emergency Medical Services; PCP Internal Medicine; Visit Provider Hospitalist
DX: L03.115 Cellulitis of right lower limb (principal); E11.42 Type 2 diabetes mellitus with diabetic polyneuropathy; E66.812 Obesity, class 2; Z68.36 Body mass index [BMI] 36.0-36.9, adult; Z71.3 Dietary counseling and surveillance; E78.2 Mixed hyperlipidemia; Z91.148 Patient's other noncompliance with medication regimen for other reason; Z79.899 Other long term (current) drug therapy
CPT/HCPCS: 36415; 73630; 73701; 80048; 80076; 80202; 82565; 82947; 83036; 83605; 83735; 83880; 85025; 85610; 87040; 93971; 99285; J1650; J3370; J3371; J7120; Q9967

== ENCOUNTER → 2024-08-02 18:52 | Outpatient (BNV) | payer OTHER, SELFPAY | PROVIDERS: Visit Provider Radiology Diagnostic Radiology | DX: R22.41 Localized swelling, mass and lump, right lower limb (principal) | CPT/HCPCS: 73701 ==

== ENCOUNTER → 2024-08-02 21:01 | Outpatient (BNV) | payer OTHER, SELFPAY | PROVIDERS: Emergency Provider Emergency Medicine Emergency Medical Services; Visit Provider Student in an Organized Health Care Education/Training Program | DX: L03.115 Cellulitis of right lower limb (principal); E11.9 Type 2 diabetes mellitus without complications; E11.621 Type 2 diabetes mellitus with foot ulcer | CPT/HCPCS: 99222; 99232; 99239; G0180 ==